=== PATIENT | male | born 1955 | race Caucasian/White ===

== ENCOUNTER 2019-09-27 16:40 | Inpatient (IN) | payer BC, OTHER ==
[~2019-09-27] VITALS: Ht 188 cm; Wt 83.9 kg
[2019-09-27 17:45] VITALS: BP 146/87
[2019-09-27] MEDS ORDERED: DOCUSATE SODIUM 283 MG/5 ML MINI-ENEMA PR PRN (18:45)
[2019-09-27] MEDS ORDERED: MELATONIN 3 MG TABLET PO PRN (18:45)
[2019-09-27] MEDS ORDERED: OxyCODONE HCL 10 MG IR TABLET PO PRN (19:00)
[2019-09-27] MEDS ORDERED: ONDANSETRON HCL 4 MG TABLET PO PRN (19:00)
[2019-09-27] MEDS ORDERED: OxyCODONE HCL 5 MG IR TABLET PO PRN (19:00)
[2019-09-27] MEDS ORDERED: INFLUENZA VIRUS VACCINE QVS 2019-20 (3YR+)/PF 60 MCG/0.5 ML SYRINGE IM ONE (20:30)
[2019-09-27] MEDS: -LIDODERM PATCH NOTE- MISC SCH (20:54)
[2019-09-27] MEDS: APIXABAN 2.5 MG TABLET PO SCH (20:55)
[2019-09-27] MEDS: DOCUSATE SODIUM 100 MG CAPSULE PO SCH (20:56)
[2019-09-27] MEDS: GABAPENTIN 300 MG CAPSULE PO SCH (20:56)
[2019-09-27] MEDS: SENNA 187 MG TABLET PO SCH (21:00)
[2019-09-27] MEDS: ACETAMINOPHEN 325 MG TABLET PO SCH (23:16)
[2019-09-27 23:30] VITALS: BP 135/78
[2019-09-28 06:37] LABS: BASOPHILS % (AUTO) 0.4 % (0.0-2.0); EOSINOPHILS % (AUTO) 2.2 % (1.0-6.0); HEMATOCRIT 36.5 % (41-53); HEMOGLOBIN 12.4 g/dL (13.5-17.5); LYMPHOCYTES # (AUTO) 4.3 K/uL (1.0-4.8); LYMPHOCYTES % (AUTO) 39.3 % (22.0-44.0); MEAN CORPUSCULAR HEMOGLOBIN 30.8 pg (26.0-34.0); MEAN CORPUSCULAR VOLUME 91 fL (80-100); MONOCYTES # (AUTO) 0.8 K/uL (0.1-1.0); MONOCYTES % (AUTO) 7.5 % (2.0-9.0); NEUTROPHILS # (AUTO) 5.5 K/uL (1.8-7.7); NEUTROPHILS % (AUTO) 50.6 % (40.0-70.0); PLATELET COUNT (AUTO) 191 K/uL (150-450); RED BLOOD CELL COUNT(AUTO) 4.02 MIL/uL (4.50-5.90); RED CELL DISTRIBUTION WIDTH 12.8 % (11.5-14.5)
[2019-09-28 06:53] LABS: ALBUMIN 2.8 g/dL (3.4-5.0); BILIRUBIN,TOTAL 1.6 mg/dL (0.1-1.0); CALCIUM, TOTAL 8.3 mg/dL (8.8-10.5); CREATININE 1.24 mg/dL (0.60-1.30); POTASSIUM 4.1 mmol/L (3.5-5.1); TOTAL PROTEIN, SERUM 5.9 g/dL (6.4-8.2)
[2019-09-28 07:20] VITALS: BP 128/78
[2019-09-28] MEDS: DOCUSATE SODIUM 100 MG CAPSULE PO SCH ×2 (08:43→20:38)
[2019-09-28] MEDS: GABAPENTIN 300 MG CAPSULE PO SCH ×3 (08:43→20:38)
[2019-09-28] MEDS: APIXABAN 2.5 MG TABLET PO SCH ×2 (08:43→20:37)
[2019-09-28] MEDS: ACETAMINOPHEN 325 MG TABLET PO SCH ×3 (08:43→23:36)
[2019-09-28] MEDS: LIDOCAINE 5% TRANSDERMAL PATCH TD SCH (08:44)
[2019-09-28 16:30] VITALS: BP 135/80
[2019-09-28] MEDS: SENNA 187 MG TABLET PO SCH (20:37)
[2019-09-28] MEDS: -LIDODERM PATCH NOTE- MISC SCH (20:47)
[2019-09-29] VITALS: BP 125/79
[2019-09-29 07:15] VITALS: BP 139/87
[2019-09-29] MEDS: LIDOCAINE 5% TRANSDERMAL PATCH TD SCH (08:24)
[2019-09-29] MEDS: APIXABAN 2.5 MG TABLET PO SCH ×2 (08:25→21:03)
[2019-09-29] MEDS: ACETAMINOPHEN 325 MG TABLET PO SCH ×3 (08:25→21:04)
[2019-09-29] MEDS: GABAPENTIN 300 MG CAPSULE PO SCH ×3 (08:25→21:03)
[2019-09-29] MEDS: DOCUSATE SODIUM 100 MG CAPSULE PO SCH ×2 (08:25→21:00)
[2019-09-29 16:00] VITALS: BP 137/80
[2019-09-29] MEDS: SENNA 187 MG TABLET PO SCH (21:00)
[2019-09-29] MEDS: -LIDODERM PATCH NOTE- MISC SCH (21:02)
[2019-09-29 23:41] VITALS: BP 124/78
[2019-09-30 07:37] VITALS: BP 135/80
[2019-09-30] MEDS: APIXABAN 2.5 MG TABLET PO SCH (08:17)
[2019-09-30] MEDS: GABAPENTIN 300 MG CAPSULE PO SCH ×3 (08:17→20:46)
[2019-09-30] MEDS: DOCUSATE SODIUM 100 MG CAPSULE PO SCH ×3 (08:17→20:48)
[2019-09-30] MEDS: LIDOCAINE 5% TRANSDERMAL PATCH TD SCH (08:17)
[2019-09-30] MEDS: ACETAMINOPHEN 325 MG TABLET PO SCH ×3 (08:17→20:47)
[2019-09-30 16:04] VITALS: BP 141/89
[2019-09-30] MEDS: SENNA 187 MG TABLET PO SCH (20:48)
[2019-09-30] MEDS: -LIDODERM PATCH NOTE- MISC SCH (20:48)
[2019-09-30 23:10] VITALS: BP 118/71
[2019-10-01] MEDS: GABAPENTIN 300 MG CAPSULE PO SCH ×3 (08:45→20:42)
[2019-10-01] MEDS: LIDOCAINE 5% TRANSDERMAL PATCH TD SCH (08:45)
[2019-10-01] MEDS: ACETAMINOPHEN 325 MG TABLET PO SCH ×3 (08:47→20:42)
[2019-10-01] MEDS: DOCUSATE SODIUM 100 MG CAPSULE PO SCH ×3 (08:57→20:43)
[2019-10-01 11:58] VITALS: BP 132/85
[2019-10-01 16:40] VITALS: BP 120/76
[2019-10-01] MEDS: -LIDODERM PATCH NOTE- MISC SCH (20:42)
[2019-10-01] MEDS: SENNA 187 MG TABLET PO SCH (20:43)
[2019-10-01 23:30] VITALS: BP 126/73
[2019-10-02 07:51] VITALS: BP 125/78
[2019-10-02] MEDS: GABAPENTIN 300 MG CAPSULE PO SCH ×3 (08:30→20:21)
[2019-10-02] MEDS: DOCUSATE SODIUM 100 MG CAPSULE PO SCH ×2 (08:31→21:00)
[2019-10-02] MEDS: LIDOCAINE 5% TRANSDERMAL PATCH TD SCH (08:31)
[2019-10-02] MEDS: ACETAMINOPHEN 325 MG TABLET PO SCH ×3 (08:31→20:22)
[2019-10-02 16:00] VITALS: BP 130/72
[2019-10-02] MEDS: SENNA 187 MG TABLET PO SCH (21:00)
[2019-10-02] MEDS: -LIDODERM PATCH NOTE- MISC SCH (21:22)
[2019-10-03 05:00] VITALS: BP 123/74
[2019-10-03] MEDS: GABAPENTIN 300 MG CAPSULE PO SCH ×3 (07:47→20:50)
[2019-10-03] MEDS: ACETAMINOPHEN 325 MG TABLET PO SCH ×3 (07:48→20:50)
[2019-10-03] MEDS: DOCUSATE SODIUM 100 MG CAPSULE PO SCH ×3 (07:49→20:53)
[2019-10-03] MEDS: LIDOCAINE 5% TRANSDERMAL PATCH TD SCH (07:49)
[2019-10-03 09:00] VITALS: BP 127/82
[2019-10-03 16:45] VITALS: BP 139/85
[2019-10-03] MEDS: SENNA 187 MG TABLET PO SCH ×2 (20:50→20:53)
[2019-10-03] MEDS: -LIDODERM PATCH NOTE- MISC SCH (20:50)
[2019-10-04 02:41] VITALS: BP 139/82
[2019-10-04 08:00] VITALS: BP 124/77
[2019-10-04] MEDS: GABAPENTIN 300 MG CAPSULE PO SCH ×3 (08:36→20:34)
[2019-10-04] MEDS: LIDOCAINE 5% TRANSDERMAL PATCH TD SCH (08:36)
[2019-10-04] MEDS: ACETAMINOPHEN 325 MG TABLET PO SCH ×3 (08:36→20:34)
[2019-10-04] MEDS: DOCUSATE SODIUM 100 MG CAPSULE PO SCH ×2 (08:36→20:34)
[2019-10-04] MEDS: TAMSULOSIN HCL 0.4 MG CAPSULE PO SCH (10:48)
[2019-10-04 15:55] VITALS: BP 125/81
[2019-10-04] MEDS: SENNA 187 MG TABLET PO SCH (20:34)
[2019-10-04] MEDS: -LIDODERM PATCH NOTE- MISC SCH (20:34)
[2019-10-05 01:20] VITALS: BP 109/71
[2019-10-05 07:50] VITALS: BP 122/89
[2019-10-05] MEDS: LIDOCAINE 5% TRANSDERMAL PATCH TD SCH (08:17)
[2019-10-05] MEDS: TAMSULOSIN HCL 0.4 MG CAPSULE PO SCH (08:17)
[2019-10-05] MEDS: ACETAMINOPHEN 325 MG TABLET PO SCH ×3 (08:17→20:15)
[2019-10-05] MEDS: GABAPENTIN 300 MG CAPSULE PO SCH ×3 (08:18→20:14)
[2019-10-05] MEDS: DOCUSATE SODIUM 100 MG CAPSULE PO SCH ×2 (09:00→20:14)
[2019-10-05 15:45] VITALS: BP 138/77
[2019-10-05] MEDS: ACETAMINOPHEN 325 MG TABLET PO PRN ×2 (16:43→20:14)
[2019-10-05] MEDS: SENNA 187 MG TABLET PO SCH (20:14)
[2019-10-05] MEDS: -LIDODERM PATCH NOTE- MISC SCH (20:14)
[2019-10-06 00:12] VITALS: BP 128/72
[2019-10-06] MEDS: LIDOCAINE 5% TRANSDERMAL PATCH TD SCH (08:28)
[2019-10-06] MEDS: ACETAMINOPHEN 325 MG TABLET PO SCH ×3 (08:28→20:29)
[2019-10-06] MEDS: GABAPENTIN 300 MG CAPSULE PO SCH ×3 (08:28→20:28)
[2019-10-06] MEDS: TAMSULOSIN HCL 0.4 MG CAPSULE PO SCH (08:28)
[2019-10-06] MEDS: DOCUSATE SODIUM 100 MG CAPSULE PO SCH ×2 (09:00→20:29)
[2019-10-06 09:03] VITALS: BP 122/75
[2019-10-06 16:45] VITALS: BP 125/78
[2019-10-06] MEDS: -LIDODERM PATCH NOTE- MISC SCH (20:27)
[2019-10-06] MEDS: SENNA 187 MG TABLET PO SCH (20:29)
[2019-10-07 05:00] VITALS: BP 104/70
[2019-10-07 07:32] VITALS: BP 111/77
[2019-10-07] MEDS: GABAPENTIN 300 MG CAPSULE PO SCH ×3 (08:24→21:00)
[2019-10-07] MEDS: LIDOCAINE 5% TRANSDERMAL PATCH TD SCH (08:24)
[2019-10-07] MEDS: ACETAMINOPHEN 325 MG TABLET PO SCH ×4 (08:24→21:00)
[2019-10-07] MEDS: DOCUSATE SODIUM 100 MG CAPSULE PO SCH ×2 (08:25→21:00)
[2019-10-07] MEDS: TAMSULOSIN HCL 0.4 MG CAPSULE PO SCH (08:25)
[2019-10-07 15:00] VITALS: BP 119/84
[2019-10-07] MEDS: SENNA 187 MG TABLET PO SCH (21:00)
[2019-10-07] MEDS: -LIDODERM PATCH NOTE- MISC SCH (21:00)
[2019-10-08 07:20] VITALS: BP 128/83
[2019-10-08] MEDS ORDERED: DOCU-275 PO (08:00)
[2019-10-08] MEDS ORDERED: ACET-2247 PO (08:00)
[2019-10-08] MEDS ORDERED: GABA-531 PO (08:00)
[2019-10-08] MEDS ORDERED: TAMS-13 PO (08:00)
[2019-10-08] MEDS ORDERED: LIDO700A15 TD (08:01)
[2019-10-08] MEDS: GABAPENTIN 300 MG CAPSULE PO SCH ×3 (08:31→20:42)
[2019-10-08] MEDS: LIDOCAINE 5% TRANSDERMAL PATCH TD SCH (08:32)
[2019-10-08] MEDS: DOCUSATE SODIUM 100 MG CAPSULE PO SCH ×2 (08:32→20:42)
[2019-10-08] MEDS: ACETAMINOPHEN 325 MG TABLET PO SCH ×3 (08:32→20:42)
[2019-10-08] MEDS: TAMSULOSIN HCL 0.4 MG CAPSULE PO SCH (08:32)
[2019-10-08 18:00] VITALS: BP 133/86
[2019-10-08] MEDS: SENNA 187 MG TABLET PO SCH (20:42)
[2019-10-08] MEDS: -LIDODERM PATCH NOTE- MISC SCH (22:43)
[2019-10-08 23:25] VITALS: BP 134/75
[2019-10-09] MEDS: TAMSULOSIN HCL 0.4 MG CAPSULE PO SCH (06:31)
[2019-10-09] MEDS: GABAPENTIN 300 MG CAPSULE PO SCH ×3 (06:31→21:17)
[2019-10-09] MEDS: LIDOCAINE 5% TRANSDERMAL PATCH TD SCH (06:32)
[2019-10-09] MEDS: ACETAMINOPHEN 325 MG TABLET PO SCH ×3 (06:32→21:17)
[2019-10-09 07:55] VITALS: BP 116/72
[2019-10-09] MEDS: DOCUSATE SODIUM 100 MG CAPSULE PO SCH ×2 (07:55→21:00)
[2019-10-09 17:15] VITALS: BP 134/74
[2019-10-09] MEDS: SENNA 187 MG TABLET PO SCH (21:00)
[2019-10-09] MEDS: -LIDODERM PATCH NOTE- MISC SCH (21:22)
[2019-10-09 23:21] VITALS: BP 123/76
[2019-10-10 07:40] VITALS: BP 115/72
[2019-10-10] MEDS: ACETAMINOPHEN 325 MG TABLET PO SCH ×4 (07:59→21:00)
[2019-10-10] MEDS: TAMSULOSIN HCL 0.4 MG CAPSULE PO SCH (07:59)
[2019-10-10] MEDS: DOCUSATE SODIUM 100 MG CAPSULE PO SCH ×3 (07:59→21:00)
[2019-10-10] MEDS: GABAPENTIN 300 MG CAPSULE PO SCH ×3 (07:59→21:37)
[2019-10-10] MEDS: LIDOCAINE 5% TRANSDERMAL PATCH TD SCH (08:01)
[2019-10-10 16:39] VITALS: BP 129/86
[2019-10-10 17:22] VITALS: BP 139/59
[2019-10-10] MEDS: APIXABAN 2.5 MG TABLET PO SCH (21:00)
[2019-10-10] MEDS: SENNA 187 MG TABLET PO SCH (21:00)
[2019-10-10] MEDS: -LIDODERM PATCH NOTE- MISC SCH (21:40)
[2019-10-10] MEDS ORDERED: APIX2.5T PO (21:46)
[2019-10-11 06:34] VITALS: BP 112/72
[2019-10-11 08:00] VITALS: BP 124/74
[2019-10-11] MEDS: ACETAMINOPHEN 325 MG TABLET PO SCH (08:40)
[2019-10-11] MEDS: GABAPENTIN 300 MG CAPSULE PO SCH (08:41)
[2019-10-11] MEDS: TAMSULOSIN HCL 0.4 MG CAPSULE PO SCH (08:41)
[2019-10-11] MEDS: APIXABAN 2.5 MG TABLET PO SCH (08:43)
[2019-10-11] MEDS: DOCUSATE SODIUM 100 MG CAPSULE PO SCH (08:44)
[2019-10-11] MEDS: LIDOCAINE 5% TRANSDERMAL PATCH TD SCH (08:44)
[2019-10-11] MEDS ORDERED: ACET-2247 PO (10:35)
== END 2019-10-11 13:00 | disposition home or self-care (01) | DRG 551 ==
LOC: 2WR 17:20
PROVIDERS: ADMIT Physical Medicine & Rehabilitation; ATTEND Physical Medicine & Rehabilitation
DX: S32.058A Other fracture of fifth lumbar vertebra, initial encounter for closed fracture (principal); S32.491A Other specified fracture of right acetabulum, initial encounter for closed fracture; S32.10XA Unspecified fracture of sacrum, initial encounter for closed fracture; S02.402A Zygomatic fracture, unspecified side, initial encounter for closed fracture; S32.501A Unspecified fracture of right pubis, initial encounter for closed fracture; S22.41XA Multiple fractures of ribs, right side, initial encounter for closed fracture; S32.119A Unspecified Zone I fracture of sacrum, initial encounter for closed fracture; E46 Unspecified protein-calorie malnutrition; S32.059A Unspecified fracture of fifth lumbar vertebra, initial encounter for closed fracture; S32.019A Unspecified fracture of first lumbar vertebra, initial encounter for closed fracture; T40.2X5A Adverse effect of other opioids, initial encounter; K59.03 Drug induced constipation; N31.9 Neuromuscular dysfunction of bladder, unspecified; D64.9 Anemia, unspecified; R26.9 Unspecified abnormalities of gait and mobility; G47.00 Insomnia, unspecified; G62.9 Polyneuropathy, unspecified; V89.1XXA Person injured in unspecified nonmotor-vehicle accident, nontraffic, initial encounter; Z83.3 Family history of diabetes mellitus; Y93.89 Activity, other specified; Y92.89 Other specified places as the place of occurrence of the external cause; Y99.8 Other external cause status; Z86.718 Personal history of other venous thrombosis and embolism; Z79.899 Other long term (current) drug therapy; Z91.19 Patient's noncompliance with other medical treatment and regimen
CPT/HCPCS: 70450; 70551; 83036; 87081; 92507; 92523; 93970; 97110; 97112; 97116; 97150; 97163; 97166; 97530; 97535; 99366

== ENCOUNTER → 2019-12-26 | Outpatient (CLI) | payer OTHER ==
[~2019-12-26] MED LIST: ACET-2247 PO; APIX2.5T PO; DOCU-275 PO; GABA-531 PO; LIDO700A15 TD; TAMS-13 PO
[2019-12-26 09:35] LABS: CREATININE 1.15 mg/dL (0.60-1.30); GLOMERULAR FILTR. RATE CALC > 60 mL/min (>60); UREA NITROGEN, BLOOD 15 mg/dL (7-18)
== END | disposition home or self-care (01) ==
LOC: LABPV 07:54
PROVIDERS: ATTEND Psychiatry & Neurology Neurology
DX: R79.89 Other specified abnormal findings of blood chemistry (principal)
CPT/HCPCS: 82565; 84520

== ENCOUNTER → 2019-12-28 | Outpatient (CLI) | payer OTHER ==
[~2019-12-28] MED LIST changes: +GADOBUTROL 1 MMOL/ML 10 ML VIAL IVP ONE
== END | disposition home or self-care (01) ==
LOC: RADMN 09:40
PROVIDERS: ATTEND Psychiatry & Neurology Neurology
DX: M47.817 Spondylosis without myelopathy or radiculopathy, lumbosacral region (principal); M48.07 Spinal stenosis, lumbosacral region; M51.36 Other intervertebral disc degeneration, lumbar region; M25.78 Osteophyte, vertebrae; D36.10 Benign neoplasm of peripheral nerves and autonomic nervous system, unspecified
CPT/HCPCS: 72158; A9585

== ENCOUNTER → 2020-04-19 | Outpatient (CLI) | payer OTHER ==
[~2020-04-19] MED LIST changes: +GABA-1181 PO; -GABA-531 PO; -GADOBUTROL 1 MMOL/ML 10 ML VIAL IVP ONE
[2020-04-19 16:09] LABS: APPEARANCE,URINE CLEAR (CLEAR); BILIRUBIN,URINE NEGATIVE (NEGATIVE); GLUCOSE, URINE (UA) NEGATIVE (NEGATIVE); KETONES,URINE TRACE mg/dL (NEGATIVE); LEUKOCYTE ESTERASE ,URINE NEGATIVE (NEGATIVE); NITRATE,URINE NEGATIVE (NEGATIVE); OCCULT BLOOD,URINE MODERATE (NEGATIVE); PH,URINE 5.5 (5.0-8.0); PROTEIN,URINE POS 1+ (NEGATIVE); UROBILINOGEN,URINE 0.2 mg/dL (<=1.0)
[2020-04-19 16:23] LABS: BACTERIA,URINE None Seen /HPF (None Seen); RBC,URINE 0-2 /HPF (0-2); SQUAMOUS EPITHELIAL CELL,UR Rare /LPF (None Seen); WBC,URINE None Seen /HPF (0-5)
== END | disposition home or self-care (01) ==
LOC: LABMN 14:39
PROVIDERS: ATTEND Internal Medicine Geriatric Medicine
DX: N39.0 Urinary tract infection, site not specified (principal)
CPT/HCPCS: 81001-TC

== ENCOUNTER 2020-04-23 14:07 | Inpatient (IN) | payer MEDICARE, OTHER ==
[~2020-04-23] VITALS: Ht 188 cm; Wt 82.3 kg
[2020-04-23] MEDS ORDERED: MACR100 PO (14:13)
[2020-04-23 17:15] LABS: BASOPHILS % (AUTO) 0.6 % (0.0-2.0); EOSINOPHILS % (AUTO) 1.5 % (1.0-6.0); LYMPHOCYTES % (AUTO) 35.6 % (22.0-44.0); MEAN CORPUSCULAR HEMOGLOBIN 30.6 pg (26.0-34.0); MEAN CORPUSCULAR HGB CONC 34.8 G/dL (31.0-37.0); MEAN CORPUSCULAR VOLUME 88 fL (80-100); MONOCYTES # (AUTO) 0.6 K/uL (0.1-1.0); MONOCYTES % (AUTO) 6.7 % (2.0-9.0); NEUTROPHILS # (AUTO) 4.6 K/uL (1.8-7.7); NEUTROPHILS % (AUTO) 55.6 % (40.0-70.0); PLATELET COUNT (AUTO) 129 K/uL (150-450); RED BLOOD CELL COUNT(AUTO) 5.21 MIL/uL (4.50-5.90); RED CELL DISTRIBUTION WIDTH 13.1 % (11.5-14.5)
[2020-04-23 17:31] LABS: CALCIUM, TOTAL 8.6 mg/dL (8.8-10.5); CREATININE 1.44 mg/dL (0.60-1.30); POTASSIUM 3.6 mmol/L (3.5-5.1)
[2020-04-23 17:45] LABS: ALBUMIN 3.3 g/dL (3.4-5.0); BILIRUBIN,TOTAL 1.6 mg/dL (0.1-1.0); C-REACTIVE PROTEIN QUANT 17.68 mg/dL (0.00-0.30); THYROID STIMULATING HORMONE 0.71 uIU/mL (0.36-3.74); TOTAL PROTEIN, SERUM 7.6 g/dL (6.4-8.2)
[2020-04-23 17:57] LABS: URIC ACID 3.5 mg/dL (2.6-7.2)
[2020-04-23] MEDS ORDERED: SODIUM CHLORIDE 0.9% 1,000 ML IV ONE (18:30)
[2020-04-23 19:05] LABS: GLUCOSE,POINT OF CARE 118 MG/DL (70-110)
[2020-04-23 19:21] LABS: APPEARANCE,URINE CLOUDY (CLEAR); GLUCOSE, URINE (UA) NEGATIVE (NEGATIVE); KETONES,URINE TRACE mg/dL (NEGATIVE); LEUKOCYTE ESTERASE ,URINE SMALL (NEGATIVE); NITRATE,URINE NEGATIVE (NEGATIVE); OCCULT BLOOD,URINE MODERATE (NEGATIVE); PROTEIN,URINE SEE CONFIRM (NEGATIVE)
[2020-04-23 19:25] LABS: BILIRUBIN,URINE PRELIM. POSITIVE (NEGATIVE)
[2020-04-23 19:30] LABS: ERYTHROCYTE SEDIMENTATION RATE 12 MM/HR (0-15)
[2020-04-23 19:37] LABS: SULFOSALICYLIC ACID,URINE 4+ (Negative)
[2020-04-23 19:39] LABS: AMORPHOUS SEDIMENT,UR Few /LPF (None Seen); BACTERIA,URINE Moderate /HPF (None Seen); SQUAMOUS EPITHELIAL CELL,UR Moderate /LPF (None Seen)
[2020-04-23] MEDS ORDERED: ACETAMINOPHEN 500 MG TABLET PO ONE (20:00)
[2020-04-23] MEDS ORDERED: 0.9% SODIUM CHLORIDE 10 ML SYRINGE IVP PRN (21:30)
[2020-04-23] MEDS ORDERED: ACETAMINOPHEN 325 MG TABLET PO PRN (21:30)
[2020-04-23] MEDS ORDERED: ONDANSETRON HCL 4 MG/2 ML VIAL IVP PRN (21:45)
[2020-04-23] MEDS ORDERED: BISACODYL 10 MG RECTAL RECTAL SUPPOSITORY PR PRN (21:45)
[2020-04-23] MEDS ORDERED: ZOLPIDEM TARTRATE 5 MG TABLET PO PRN (21:45)
[2020-04-23] MEDS ORDERED: MAGNESIUM HYDROXIDE SUSPENSION 30 ML UDCUP PO PRN (21:45)
[2020-04-23] MEDS ORDERED: *CLINICAL-LEVOFLOXACIN IVPB DOSING CLINICAL ONE (21:45)
[2020-04-23] MEDS ORDERED: AZITHROMYCIN 500 MG/NS 250 ML IV ONE (22:00)
[2020-04-24 01:58] VITALS: BP 110/75
[2020-04-24] MEDS ORDERED: LEVOFLOXACIN 500 MG/D5% WATER 100 ML IV SCH (02:00)
[2020-04-24 05:35] VITALS: BP 114/66
[2020-04-24 06:57] LABS: BASOPHILS % (AUTO) 0.5 % (0.0-2.0); EOSINOPHILS % (AUTO) 5.6 % (1.0-6.0); HEMATOCRIT 38.9 % (41-53); HEMOGLOBIN 13.5 g/dL (13.5-17.5); LYMPHOCYTES % (AUTO) 32.7 % (22.0-44.0); MEAN CORPUSCULAR HEMOGLOBIN 30.7 pg (26.0-34.0); MEAN CORPUSCULAR HGB CONC 34.7 G/dL (31.0-37.0); MEAN CORPUSCULAR VOLUME 88 fL (80-100); MONOCYTES # (AUTO) 0.5 K/uL (0.1-1.0); MONOCYTES % (AUTO) 8.2 % (2.0-9.0); NEUTROPHILS # (AUTO) 3.3 K/uL (1.8-7.7); PLATELET COUNT (AUTO) 118 K/uL (150-450); RED CELL DISTRIBUTION WIDTH 13.1 % (11.5-14.5)
[2020-04-24 07:36] LABS: LACTIC ACID 1.1 mmol/L (0.4-2.0)
[2020-04-24 07:39] VITALS: BP 127/69
[2020-04-24] MEDS: ACETAMINOPHEN 325 MG TABLET PO PRN ×2 (07:59→20:47)
[2020-04-24 08:15] LABS: HEMOGLOBIN A1C 5.9 % (3.8-5.6)
[2020-04-24 08:23] LABS: ALBUMIN 2.5 g/dL (3.4-5.0); BILIRUBIN,TOTAL 1.1 mg/dL (0.1-1.0); C-REACTIVE PROTEIN QUANT 13.66 mg/dL (0.00-0.30); CALCIUM, TOTAL 7.9 mg/dL (8.8-10.5); CHOL/HDL RATIO 9.2 (4.2-7.3); CREATININE 1.26 mg/dL (0.60-1.30); FREE T4 (FREE THYROXINE) 1.24 ng/dL (0.76-1.46); MAGNESIUM 2.1 mg/dL (1.80-2.40); POTASSIUM 3.1 mmol/L (3.5-5.1); THYROID STIMULATING HORMONE 0.87 uIU/mL (0.36-3.74); TOTAL PROTEIN, SERUM 5.8 g/dL (6.4-8.2)
[2020-04-24] MEDS ORDERED: LIDOCAINE 5% TRANSDERMAL PATCH TD SCH (09:00)
[2020-04-24] MEDS: DOCUSATE SODIUM 100 MG CAPSULE PO SCH ×2 (09:00→20:46)
[2020-04-24] MEDS: GABAPENTIN 300 MG CAPSULE PO SCH ×3 (09:30→20:46)
[2020-04-24] MEDS: TAMSULOSIN HCL 0.4 MG CAPSULE PO SCH (09:30)
[2020-04-24] MEDS: PANTOPRAZOLE SODIUM 40 MG DR TABLET PO SCH (09:30)
[2020-04-24] MEDS ORDERED: POTASSIUM CHL 10 MEQ/WATER 50 ML IV SCH (10:15)
[2020-04-24] MEDS ORDERED: SODIUM CHLORIDE 0.9% 1,000 ML IV SCH (10:30)
[2020-04-24 10:41] VITALS: BP 118/74
[2020-04-24] MEDS ORDERED: POTASSIUM CHLORIDE 20 MEQ ER TABLET PO ONE ×2 (11:45)
[2020-04-24] MEDS ORDERED: LIDOCAINE/PF 2% 5 ML SYRINGE IVP ONE (12:00)
[2020-04-24] MEDS ORDERED: SUCCINYLCHOLINE CHLORIDE 20 MG/ML 10 ML VIAL IVP ONE (12:00)
[2020-04-24] MEDS ORDERED: DEXAMETHASONE SOD PHOS 4 MG/ML VIAL IVP ONE (12:00)
[2020-04-24] MEDS ORDERED: ONDANSETRON HCL 4 MG/2 ML VIAL IVP ONE (12:00)
[2020-04-24] MEDS ORDERED: METOCLOPRAMIDE HCL 5 MG/ML 2 ML VIAL IVP ONE (12:00)
[2020-04-24] MEDS ORDERED: PROPOFOL 1% 20 ML VIAL IVP ONE (12:00)
[2020-04-24] MEDS: POTASSIUM CHL 20 MEQ/0.9% NS 1,000 ML IV SCH (12:44)
[2020-04-24 15:27] VITALS: BP 137/69
[2020-04-24 20:45] VITALS: BP 133/67
[2020-04-24] MEDS: LEVOFLOXACIN 750 MG/D5% WATER 150 ML IV SCH (22:31)
[2020-04-25 00:40] VITALS: BP 113/97
[2020-04-25] MEDS: POTASSIUM CHL 20 MEQ/0.9% NS 1,000 ML IV SCH (02:12)
[2020-04-25 05:10] VITALS: BP 108/63
[2020-04-25 08:03] LABS: ALANINE AMINOTRANSFERASE 41 U/L (12-78); ALBUMIN 2.6 g/dL (3.4-5.0); ALKALINE PHOSPHATASE 67 U/L (46-116); ANION GAP 6 mmol/L (8-16); ASPARTATE AMINOTRANSFERASE 30 U/L (15-37); C-REACTIVE PROTEIN QUANT 12.26 mg/dL (0.00-0.30); CALCIUM, TOTAL 7.9 mg/dL (8.8-10.5); CARBON DIOXIDE 29 mmol/L (22-29); CHLORIDE 102 mmol/L (98-107); CREATININE 1.19 mg/dL (0.60-1.30); FERRITIN 3235 ng/mL (26-388); GLOMERULAR FILTR. RATE CALC > 60 mL/min (>60); GLUCOSE,RANDOM 113 mg/dL (70-110); POTASSIUM 3.4 mmol/L (3.5-5.1); SODIUM SERUM 137 mmol/L (136-145); UREA NITROGEN, BLOOD 12 mg/dL (7-18)
[2020-04-25 08:06] LABS: BASOPHILS % (AUTO) 0.5 % (0.0-2.0); EOSINOPHILS % (AUTO) 7.1 % (1.0-6.0); HEMATOCRIT 39.1 % (41-53); HEMOGLOBIN 13.6 g/dL (13.5-17.5); LYMPHOCYTES # (AUTO) 1.4 K/uL (1.0-4.8); LYMPHOCYTES % (AUTO) 25.1 % (22.0-44.0); MEAN CORPUSCULAR HGB CONC 34.8 G/dL (31.0-37.0); MEAN CORPUSCULAR VOLUME 89 fL (80-100); MONOCYTES # (AUTO) 0.4 K/uL (0.1-1.0); MONOCYTES % (AUTO) 7.7 % (2.0-9.0); NEUTROPHILS # (AUTO) 3.3 K/uL (1.8-7.7); NEUTROPHILS % (AUTO) 59.6 % (40.0-70.0); PLATELET COUNT (AUTO) 127 K/uL (150-450); RED BLOOD CELL COUNT(AUTO) 4.39 MIL/uL (4.50-5.90)
[2020-04-25] MEDS ORDERED: POTASSIUM CHLORIDE 20 MEQ ER TABLET PO ONE (08:15)
[2020-04-25 08:37] VITALS: BP 115/68
[2020-04-25] MEDS: GABAPENTIN 300 MG CAPSULE PO SCH ×3 (09:20→20:09)
[2020-04-25] MEDS: PANTOPRAZOLE SODIUM 40 MG DR TABLET PO SCH (09:20)
[2020-04-25] MEDS: DOCUSATE SODIUM 100 MG CAPSULE PO SCH ×2 (09:20→20:15)
[2020-04-25] MEDS: TAMSULOSIN HCL 0.4 MG CAPSULE PO SCH (09:20)
[2020-04-25 11:23] VITALS: BP 121/68
[2020-04-25 13:37] LABS: CREATININE,URINE RANDOM 41.5 mg/dL (30.0-125.0)
[2020-04-25 16:00] LABS: MONOTEST NEGATIVE (NEGATIVE)
[2020-04-25 16:09] VITALS: BP 133/73
[2020-04-25] MEDS: ACETAMINOPHEN 325 MG TABLET PO PRN (20:09)
[2020-04-25 20:51] VITALS: BP 113/52
[2020-04-25 22:49] LABS: RAPID PLASMA REAGIN NONREACTIVE (NONREACTIVE)
[2020-04-25] MEDS: LEVOFLOXACIN 750 MG/D5% WATER 150 ML IV SCH (23:21)
[2020-04-25] MEDS ORDERED: SODIUM CHLORIDE 0.9% 100 ML ONE (23:26)
[2020-04-26 00:15] VITALS: BP 101/65
[2020-04-26 04:35] VITALS: BP 97/61
[2020-04-26 06:33] LABS: BASOPHILS % (AUTO) 0.5 % (0.0-2.0); HEMATOCRIT 38.8 % (41-53); HEMOGLOBIN 13.3 g/dL (13.5-17.5); LYMPHOCYTES # (AUTO) 1.7 K/uL (1.0-4.8); LYMPHOCYTES % (AUTO) 25.3 % (22.0-44.0); MEAN CORPUSCULAR HEMOGLOBIN 30.7 pg (26.0-34.0); MEAN CORPUSCULAR HGB CONC 34.3 G/dL (31.0-37.0); MEAN CORPUSCULAR VOLUME 90 fL (80-100); MONOCYTES # (AUTO) 0.3 K/uL (0.1-1.0); MONOCYTES % (AUTO) 3.9 % (2.0-9.0); NEUTROPHILS # (AUTO) 4.2 K/uL (1.8-7.7); NEUTROPHILS % (AUTO) 62.3 % (40.0-70.0); PLATELET COUNT (AUTO) 146 K/uL (150-450); RED BLOOD CELL COUNT(AUTO) 4.33 MIL/uL (4.50-5.90); RED CELL DISTRIBUTION WIDTH 13.1 % (11.5-14.5)
[2020-04-26 07:49] LABS: ANION GAP 3 mmol/L (8-16); C-REACTIVE PROTEIN QUANT 9.36 mg/dL (0.00-0.30); CALCIUM, TOTAL 8.3 mg/dL (8.8-10.5); CARBON DIOXIDE 30 mmol/L (22-29); CHLORIDE 107 mmol/L (98-107); CREATININE 1.11 mg/dL (0.60-1.30); FERRITIN 2439 ng/mL (26-388); GLOMERULAR FILTR. RATE CALC > 60 mL/min (>60); GLUCOSE,RANDOM 118 mg/dL (70-110); LACTATE DEHYDROGENASE 389 U/L (85-227); POTASSIUM 3.8 mmol/L (3.5-5.1); SODIUM SERUM 140 mmol/L (136-145); UREA NITROGEN, BLOOD 10 mg/dL (7-18)
[2020-04-26] MEDS: PANTOPRAZOLE SODIUM 40 MG DR TABLET PO SCH (08:19)
[2020-04-26] MEDS: TAMSULOSIN HCL 0.4 MG CAPSULE PO SCH (08:19)
[2020-04-26] MEDS: DOCUSATE SODIUM 100 MG CAPSULE PO SCH ×2 (08:20→20:13)
[2020-04-26 08:28] VITALS: BP 102/66
[2020-04-26 11:30] VITALS: BP 113/72
[2020-04-26] MEDS ORDERED: FentaNYL CITRATE-PF 100 MCG/2 ML VIAL IVP ONE (12:00)
[2020-04-26] MEDS ORDERED: MIDAZOLAM HCL 2 MG/2 ML VIAL IVP ONE (12:00)
[2020-04-26] MEDS ORDERED: LIDOCAINE 2%/EPI 1:200,000/PF 20 ML VIAL ONE (12:45)
[2020-04-26] MEDS ORDERED: BUPIVACAINE HCL/PF 0.5% 30 ML VIAL ONE (12:45)
[2020-04-26] MEDS ORDERED: RINGERS SOLUTION,LACTATED 1,000 ML IV ONE ×3 (13:31→14:21)
[2020-04-26] MEDS ORDERED: FAMOTIDINE 10 MG/ML 2 ML VIAL IVP ONE (13:45)
[2020-04-26] MEDS ORDERED: ACETAMINOPHEN 500 MG TABLET PO PRN (14:30)
[2020-04-26] MEDS ORDERED: IBUPROFEN 800 MG TABLET PO PRN (14:30)
[2020-04-26] MEDS ORDERED: HEPARIN SODIUM,PORCINE 5,000 UNITS/ML VIAL IVP ONE (18:15)
[2020-04-26] MEDS ORDERED: HEPARIN SODIUM,PORCINE 5,000 UNITS/ML VIAL IVP PRN ×2 (18:15)
[2020-04-26 19:07] LABS: BASOPHILS % (AUTO) 0.2 % (0.0-2.0); EOSINOPHILS % (AUTO) 0.6 % (1.0-6.0); HEMATOCRIT 41.4 % (41-53); HEMOGLOBIN 13.6 g/dL (13.5-17.5); LYMPHOCYTES # (AUTO) 2.2 K/uL (1.0-4.8); LYMPHOCYTES % (AUTO) 20.3 % (22.0-44.0); MEAN CORPUSCULAR HEMOGLOBIN 29.6 pg (26.0-34.0); MEAN CORPUSCULAR HGB CONC 32.8 G/dL (31.0-37.0); MEAN CORPUSCULAR VOLUME 90 fL (80-100); MONOCYTES # (AUTO) 0.1 K/uL (0.1-1.0); MONOCYTES % (AUTO) 1.3 % (2.0-9.0); NEUTROPHILS # (AUTO) 8.6 K/uL (1.8-7.7); NEUTROPHILS % (AUTO) 77.6 % (40.0-70.0); PLATELET COUNT (AUTO) 170 K/uL (150-450); RED BLOOD CELL COUNT(AUTO) 4.59 MIL/uL (4.50-5.90); RED CELL DISTRIBUTION WIDTH 13.3 % (11.5-14.5)
[2020-04-26 19:29] LABS: INR 1.1 (0.9-1.1); PROTHROMBIN TIME 11.7 SEC (9.4-11.6)
[2020-04-26] MEDS: HEPARIN SODIUM 25000 UNITS/D5W 250 ML IV PRN (19:51)
[2020-04-26 21:16] VITALS: BP 131/66
[2020-04-27 00:21] VITALS: BP 103/62
[2020-04-27 04:17] VITALS: BP 116/66
[2020-04-27 08:51] VITALS: BP 112/67
[2020-04-27 09:00] LABS: BASOPHILS % (AUTO) 0.3 % (0.0-2.0); HEMATOCRIT 38.6 % (41-53); HEMOGLOBIN 12.6 g/dL (13.5-17.5); LYMPHOCYTES # (AUTO) 3.4 K/uL (1.0-4.8); MEAN CORPUSCULAR HEMOGLOBIN 29.4 pg (26.0-34.0); MEAN CORPUSCULAR HGB CONC 32.8 G/dL (31.0-37.0); MEAN CORPUSCULAR VOLUME 90 fL (80-100); MONOCYTES # (AUTO) 0.4 K/uL (0.1-1.0); MONOCYTES % (AUTO) 3.5 % (2.0-9.0); NEUTROPHILS # (AUTO) 8.6 K/uL (1.8-7.7); NEUTROPHILS % (AUTO) 68.2 % (40.0-70.0); PLATELET COUNT (AUTO) 197 K/uL (150-450); RED CELL DISTRIBUTION WIDTH 13.2 % (11.5-14.5)
[2020-04-27] MEDS: DOCUSATE SODIUM 100 MG CAPSULE PO SCH ×2 (09:00→20:07)
[2020-04-27] MEDS: HEPARIN SODIUM 25000 UNITS/D5W 250 ML IV PRN ×2 (09:46→15:56)
[2020-04-27] MEDS: TAMSULOSIN HCL 0.4 MG CAPSULE PO SCH (09:49)
[2020-04-27] MEDS: PANTOPRAZOLE SODIUM 40 MG DR TABLET PO SCH (09:49)
[2020-04-27 10:10] LABS: C-REACTIVE PROTEIN QUANT 6.23 mg/dL (0.00-0.30); CREATININE 1.21 mg/dL (0.60-1.30); POTASSIUM 3.6 mmol/L (3.5-5.1)
[2020-04-27 11:13] VITALS: BP 120/68
[2020-04-27 12:21] LABS: BARTONELLA QUINTANA IGG TITER Negative titer (Neg:<1:320); BARTONELLA QUINTANA IGM TITER Negative titer (Neg:<1:100)
[2020-04-27 16:20] VITALS: BP 125/65
[2020-04-27 19:40] VITALS: BP 113/62
[2020-04-28] VITALS (7 sets, daily range): BP systolic 100–123; BP diastolic 60–76
[2020-04-28] MEDS: TAMSULOSIN HCL 0.4 MG CAPSULE PO SCH (08:15)
[2020-04-28] MEDS: PANTOPRAZOLE SODIUM 40 MG DR TABLET PO SCH (08:15)
[2020-04-28] MEDS: DOCUSATE SODIUM 100 MG CAPSULE PO SCH ×2 (08:15→20:41)
[2020-04-28] MEDS: HEPARIN SODIUM 25000 UNITS/D5W 250 ML IV PRN (14:45)
[2020-04-29 04:55] VITALS: BP 116/73
[2020-04-29 06:52] LABS: BASOPHILS % (AUTO) 0.2 % (0.0-2.0); EOSINOPHILS % (AUTO) 1.9 % (1.0-6.0); HEMATOCRIT 34.9 % (41-53); HEMOGLOBIN 11.8 g/dL (13.5-17.5); LYMPHOCYTES # (AUTO) 4.2 K/uL (1.0-4.8); LYMPHOCYTES % (AUTO) 43.6 % (22.0-44.0); MEAN CORPUSCULAR HEMOGLOBIN 30.6 pg (26.0-34.0); MEAN CORPUSCULAR HGB CONC 33.8 G/dL (31.0-37.0); MEAN CORPUSCULAR VOLUME 91 fL (80-100); MONOCYTES # (AUTO) 0.8 K/uL (0.1-1.0); MONOCYTES % (AUTO) 8.1 % (2.0-9.0); NEUTROPHILS # (AUTO) 4.4 K/uL (1.8-7.7); NEUTROPHILS % (AUTO) 46.2 % (40.0-70.0); PLATELET COUNT (AUTO) 247 K/uL (150-450); RED BLOOD CELL COUNT(AUTO) 3.85 MIL/uL (4.50-5.90); RED CELL DISTRIBUTION WIDTH 13.4 % (11.5-14.5)
[2020-04-29 07:34] LABS: ALANINE AMINOTRANSFERASE 52 U/L (12-78); ALBUMIN 2.4 g/dL (3.4-5.0); ALKALINE PHOSPHATASE 59 U/L (46-116); ANION GAP 9 mmol/L (8-16); ASPARTATE AMINOTRANSFERASE 39 U/L (15-37); BILIRUBIN,TOTAL 0.7 mg/dL (0.1-1.0); C-REACTIVE PROTEIN QUANT 2.42 mg/dL (0.00-0.30); CALCIUM, TOTAL 8.1 mg/dL (8.8-10.5); CARBON DIOXIDE 29 mmol/L (22-29); CHLORIDE 108 mmol/L (98-107); CREATININE 1.12 mg/dL (0.60-1.30); FERRITIN 982 ng/mL (26-388); GLOMERULAR FILTR. RATE CALC > 60 mL/min (>60); GLUCOSE,RANDOM 118 mg/dL (70-110); POTASSIUM 3.6 mmol/L (3.5-5.1); SODIUM SERUM 146 mmol/L (136-145); TOTAL PROTEIN, SERUM 5.4 g/dL (6.4-8.2); UREA NITROGEN, BLOOD 13 mg/dL (7-18)
[2020-04-29] MEDS: TAMSULOSIN HCL 0.4 MG CAPSULE PO SCH (07:58)
[2020-04-29] MEDS: PANTOPRAZOLE SODIUM 40 MG DR TABLET PO SCH (07:58)
[2020-04-29] MEDS: DOCUSATE SODIUM 100 MG CAPSULE PO SCH ×2 (08:04→20:11)
[2020-04-29 08:21] VITALS: BP 120/76
[2020-04-29] MEDS ORDERED: DEXTROSE 5%-WATER 1,000 ML IV SCH (09:19)
[2020-04-29 11:11] VITALS: BP 126/75
[2020-04-29] MEDS: HEPARIN SODIUM 25000 UNITS/D5W 250 ML IV PRN (11:26)
[2020-04-29 15:56] VITALS: BP 107/68
[2020-04-29] MEDS ORDERED: LOPERAMIDE HCL 2 MG CAPSULE PO PRN (17:00)
[2020-04-29 19:21] VITALS: BP 113/76
[2020-04-29 23:21] VITALS: BP 126/77
[2020-04-30 04:34] VITALS: BP 120/75
[2020-04-30 05:14] LABS: BASOPHILS % (AUTO) 0.2 % (0.0-2.0); EOSINOPHILS % (AUTO) 1.5 % (1.0-6.0); HEMATOCRIT 38.1 % (41-53); HEMOGLOBIN 12.5 g/dL (13.5-17.5); LYMPHOCYTES # (AUTO) 5.2 K/uL (1.0-4.8); LYMPHOCYTES % (AUTO) 48.7 % (22.0-44.0); MEAN CORPUSCULAR HEMOGLOBIN 29.9 pg (26.0-34.0); MEAN CORPUSCULAR HGB CONC 32.9 G/dL (31.0-37.0); MEAN CORPUSCULAR VOLUME 91 fL (80-100); MONOCYTES # (AUTO) 0.7 K/uL (0.1-1.0); MONOCYTES % (AUTO) 6.9 % (2.0-9.0); NEUTROPHILS # (AUTO) 4.5 K/uL (1.8-7.7); NEUTROPHILS % (AUTO) 42.7 % (40.0-70.0); PLATELET COUNT (AUTO) 284 K/uL (150-450); RED BLOOD CELL COUNT(AUTO) 4.19 MIL/uL (4.50-5.90); RED CELL DISTRIBUTION WIDTH 13.3 % (11.5-14.5)
[2020-04-30 05:22] LABS: CALCIUM, TOTAL 8.4 mg/dL (8.8-10.5); CREATININE 1.24 mg/dL (0.60-1.30); MAGNESIUM 2.1 mg/dL (1.80-2.40); PHOSPHORUS 4.1 mg/dL (2.5-4.9); POTASSIUM 4.1 mmol/L (3.5-5.1)
[2020-04-30 07:53] VITALS: BP 122/80
[2020-04-30] MEDS ORDERED: SODIUM CHLORIDE 0.45% 1,000 ML IV SCH (08:14)
[2020-04-30] MEDS: PANTOPRAZOLE SODIUM 40 MG DR TABLET PO SCH (08:20)
[2020-04-30] MEDS: TAMSULOSIN HCL 0.4 MG CAPSULE PO SCH (08:20)
[2020-04-30] MEDS: DOCUSATE SODIUM 100 MG CAPSULE PO SCH (08:21)
[2020-04-30 08:48] LABS: C-REACTIVE PROTEIN QUANT 1.69 mg/dL (0.00-0.30)
[2020-04-30 11:34] VITALS: BP 118/77
== END 2020-04-30 13:40 | disposition home or self-care (01) | DRG 854 ==
LOC: EMS 14:12 → 5N 21:34 → 5S 04-26 16:00 → 5N 04-26 19:00 → 5S 04-29 11:04
PROVIDERS: ADMIT Internal Medicine Geriatric Medicine; ATTEND Internal Medicine Geriatric Medicine
PROC: 07B50ZZ Excision of Right Axillary Lymphatic, Open Approach (ICD-10-PCS; principal; 2020-04-26 13:00)
DX: A41.9 Sepsis, unspecified organism (principal); E87.1 Hypo-osmolality and hyponatremia; N39.0 Urinary tract infection, site not specified; N17.9 Acute kidney failure, unspecified; D68.59 Other primary thrombophilia; E87.3 Alkalosis; E87.0 Hyperosmolality and hypernatremia; I82.403 Acute embolism and thrombosis of unspecified deep veins of lower extremity, bilateral; N40.0 Benign prostatic hyperplasia without lower urinary tract symptoms; E86.1 Hypovolemia; R79.89 Other specified abnormal findings of blood chemistry; G47.33 Obstructive sleep apnea (adult) (pediatric); Z20.828 Contact with and (suspected) exposure to other viral communicable diseases; E87.6 Hypokalemia; R59.0 Localized enlarged lymph nodes; D64.9 Anemia, unspecified; R31.29 Other microscopic hematuria; Z88.0 Allergy status to penicillin; Z86.718 Personal history of other venous thrombosis and embolism; Z86.711 Personal history of pulmonary embolism; Z90.49 Acquired absence of other specified parts of digestive tract; Z80.42 Family history of malignant neoplasm of prostate; Z79.899 Other long term (current) drug therapy; Z91.19 Patient's noncompliance with other medical treatment and regimen
CPT/HCPCS: 70450; 71250; 72192; 74150; 76770; 82271; 82570; 82728; 83036; 83520; 83605; 83615; 83735; 84100; 84145; 84153; 84156; 84439; 84443; 84550; 85379; 85651; 86038; 86140; 86308; 86480; 86592; 86611; 86635; 87015; 87040; 87070; 87086; 87101; 87176; 87205; 87206; 87252; 93306; 93970; G0378; J0330; J0456; J1100; J1644; J1956; J2250; J2405; J2704; J2765; J3010; J3480; J3490; J7030; J7050; J7060; J7120; 36415-L1; 36415-TC; 71045-TC; 80061-TC; U0003-CS

== ENCOUNTER → 2020-07-06 | Outpatient (CLI) | payer OTHER, MEDICARE ==
[~2020-07-06] MED LIST changes: -ACET-2247 PO; +ACET-2865 PO; -GABA-1181 PO; +GADOBUTROL 1 MMOL/ML 10 ML VIAL IVP ONE
== END | disposition home or self-care (01) ==
LOC: RADMN 13:00
PROVIDERS: ATTEND Internal Medicine Hematology & Oncology
DX: C83.08 Small cell B-cell lymphoma, lymph nodes of multiple sites (principal); M43.16 Spondylolisthesis, lumbar region; M51.26 Other intervertebral disc displacement, lumbar region; M48.061 Spinal stenosis, lumbar region without neurogenic claudication; M48.07 Spinal stenosis, lumbosacral region
CPT/HCPCS: 72158; A9585